=== PATIENT | male | born 1970 | race American Indian/Alaskan Native ===

== ENCOUNTER 2021-01-23 21:51 | Observation (INO) | payer SELFPAY ==
[2021-01-23] MEDS ORDERED: MORPHINE 4 MG/1 ML INJ IV ONE (22:20)
[2021-01-23] MEDS ORDERED: ONDANSETRON 4 MG/2 ML INJ IV ONE (22:20)
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
[2021-01-23 23:23] LABS: INR 0.88 (0.87-1.13)
[2021-01-23 23:24] LABS: Partial Thromboplastin Time 30.5 Sec. (24.2-36.6)
[2021-01-23 23:31] LABS: Alanine Aminotransferase 13 units/L (7-56); Albumin 3.5 g/dL (3.9-5); BUN/Creatinine Ratio 7; Blood Urea Nitrogen 8 mg/dL (9-20); Calcium 8.7 mg/dL (8.4-10.2); Hemolysis Index 17
[2021-01-23 23:56] LABS: Basophils # (Auto) 0.1 K/mm3 (0.0-0.1); Basophils % (Auto) 2.1 % (0.0-1.8); Eosinophils # (Auto) 0.3 K/mm3 (0.0-0.4); Eosinophils % (Auto) 6.4 % (0.0-4.3); Hematocrit 41.3 % (35.5-45.6); Hemoglobin 13.2 gm/dl (11.8-15.2); Lymphocytes # (Auto) 1.6 K/mm3 (1.2-5.4); Lymphocytes % (Auto) 31.8 % (13.4-35.0); Mean Corpuscular HGB Conc 32 % (32-34); Mean Corpuscular Volume 72 fl (84-94); Monocytes # (Auto) 0.5 K/mm3 (0.0-0.8); Monocytes % (Auto) 9.3 % (0.0-7.3); Platelet Count 254 K/mm3 (140-440); Red Blood Count 5.71 M/mm3 (3.65-5.03); Red Cell Distribution Width 14.6 % (13.2-15.2)
--- NOTE | 2021-01-24 00:14 | Cat Scan Report ---
CTA ABDOMEN AND PELVIS WITHOUT AND WITH IV CONTRAST INDICATION / CLINICAL INFORMATION: Pt complains of lower abdominal pain with rectal bleeding. TECHNIQUE: Axial CT images were obtained through the abdomen and pelvis before and after after injection of IV c ontrast. 3 plane MIP / 3D reconstructions were produced. All CT scans at this location are performed using CT dose reduction for ALARA by means of automated exposure control. COMPARISON: None available. FINDINGS: Lung bases are clear. The liver, spleen, adrenal glands, pancreas, gallbladder and upper GI tract jagdish ear normal. Celiac branches appear normal. SMA appears normal. ADOLPH appears normal. There are 2 left r enal arteries and a single right renal artery. Appendix appears normal. There is questionable mild thickening of distal sigmoid colon however there is incomplete distention. Several diverticula are seen in the descending colon and proximal sigmoid colon. No focal inflammato ry change or free fluid. No active extravasation is seen. Additional Findings: None. Skeletal Structures: No significant abnormality. IMPRESSION: 1. Left colonic and sigmoid diverticulosis. There is questionable mild thickening of the proximal sig moid colon and within the region of the rectum however no focal inflammatory change is seen. Clinical correlation and follow-up 2. No active extravasation is identified. Arterial vessels of the abdomen appear patent. Signer Name: Kennedy Louise MD Signed: 01/24/2021 12:09 AM Workstation Name: [id number]
[2021-01-24] MEDS ORDERED: MORPHINE 2 MG/1 ML INJ IV ONE (03:14)
[2021-01-24] MEDS ORDERED: MORPHINE 2 MG/1 ML INJ ONE (03:15)
[2021-01-24] MEDS ORDERED: ALBUTEROL 2.5 MG/3 ML NEBU IH PRN (03:24)
[2021-01-24] MEDS ORDERED: MORPHINE 2 MG/1 ML INJ IV PRN (03:24)
[2021-01-24] MEDS ORDERED: ACETAMINOPHEN 325 MG TAB PO PRN (03:24)
[2021-01-24] MEDS ORDERED: HYDROmorphone 1 MG/1 ML INJ IV PRN (03:24)
[2021-01-24] MEDS ORDERED: ONDANSETRON 4 MG/2 ML INJ IV PRN (03:24)
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
[2021-01-24] MEDS ORDERED: D5W/0.45% NACL 1,000 ML IV SCH (04:00)
[2021-01-24] MEDS ORDERED: SODIUM CHLORIDE 0.9% 1000 ML 1,000 ML IV ONE (06:51)
[2021-01-24] MEDS: PANTOPRAZOLE 40 MG INJ IV SCH ×2 (10:13→21:08)
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
--- NOTE | 2021-01-24 12:36 | Event Note ---
Date: 01/24/21 Patient was seen and evaluated this morning. Patient was found to be hemodynamically stable. GI was consulted, and the plan is to undergo colono scopy tomorrow. We will continue to monitor and trend hemoglobins.
[2021-01-24] MEDS ORDERED: POLYETHYLENE GLYCOL/ELECT SOLN 4000 ML PO ONE (17:00)
[2021-01-25 06:01] LABS: Basophils % (Auto) 0.9 % (0.0-1.8); Eosinophils # (Auto) 0.3 K/mm3 (0.0-0.4); Eosinophils % (Auto) 5.9 % (0.0-4.3); Hemoglobin 13.9 gm/dl (11.8-15.2); Lymphocytes # (Auto) 1.4 K/mm3 (1.2-5.4); Lymphocytes % (Auto) 27.7 % (13.4-35.0); Mean Corpuscular HGB Conc 32 % (32-34); Mean Corpuscular Volume 73 fl (84-94); Monocytes # (Auto) 0.5 K/mm3 (0.0-0.8); Monocytes % (Auto) 9.6 % (0.0-7.3); Platelet Count 269 K/mm3 (140-440); Red Blood Count 6.02 M/mm3 (3.65-5.03); Red Cell Distribution Width 14.5 % (13.2-15.2)
[2021-01-25 06:22] LABS: BUN/Creatinine Ratio 6; Blood Urea Nitrogen 7 mg/dL (9-20); Calcium 8.9 mg/dL (8.4-10.2); Hemolysis Index 3
--- NOTE | 2021-01-25 10:49 | Anesthesia Day of Surgery ---
Anesthesia Day of Surgery - Day of Surgery Patient Examined: Yes Patient H&P Reviewed: Yes Patient is NPO: Yes
--- NOTE | 2021-01-25 10:49 | Anesthesia Consultation ---
Anesthesia Consult and Med Hx Date of service: 01/25/21 - Airway Anesthetic Teeth Evaluation: Good (missing teeth; denies loose teeth) ROM Head & Neck: Adequate Mental/Hyoid Distance: Adequate Mallampati Class: Class II Intubation Access Assessment: Probably Good - Pulmonary Exam CTA: Yes - Cardiac Exam Cardiac Exam: RRR - Pre-Operative Health Status ASA Pre-Surgery Classification: ASA2 Proposed Anesthetic Plan: MAC - Pulmonary Hx Smoking: No Hx Respiratory Symptoms: No - Cardiovascular System Hx Hypertension: No Hx Heart Attack/AMI: No (>4mets functional capacity) Hx Percutaneous Transluminal Coronary Angioplasty (PTCA): No Hx Cardia Arrhythmia: No - Central Nervous System CVA: No - Endocrine Hx Renal Disease: No Hx Liver Disease: No Hx Insulin Dependent Diabetes: No Hx Non-Insulin Dependent Diabetes: No Hx Thyroid Disease: No - Other Systems Hx Obesity: Yes (BMI 30) - Additional Comments Anesthesia Medical History Comments: No prior anesthetics. Denies hx medical problems but has not seen PCP or had routine physical exam in >15yrs. Scheduled for colonoscopy for rectal bleeding.
[2021-01-25] MEDS ORDERED: SODIUM CHLORIDE 0.9% 1000 ML 1,000 ML IV SCH (11:00)
[2021-01-25] MEDS: PANTOPRAZOLE 40 MG INJ IV SCH (11:56)
[2021-01-25] MEDS ORDERED: propofoL 200 MG/20 ML VIAL IV ONE ×2 (12:02→12:14)
--- NOTE | 2021-01-25 12:28 | Post Operative Note ---
Pre-op diagnosis: Rectal bleed Post-op diagnosis: other (Diverticulosis, hemorrhoids) Findings: 1. Moderate diverticulosis of sigmoid and descending colon. 2. Small internal hemorrhoids. 3. Otherwise normal exam. 4. No bleeding noted. Procedure: Colonoscopy Anesthesia: MAC Surgeon: NILE RICHMOND Estimated blood loss: none Pathology: none Condition: stable Disposition: floor (Okay to discharge home on high fiber diet.)
--- NOTE | 2021-01-25 12:39 | Operative Report ---
DATE OF SURGERY: 01/25/2021 COLONOSCOPY REPORT PROCEDURE: Colonoscopy. PREOPERATIVE DIAGNOSIS: Rectal bleeding. POSTOPERATIVE DIAGNOSES: Diverticulosis and hemorrhoids. SEDATION: MAC by Anesthesia. HISTORY: The patient is a 50-year-old man who presented with intermittent rectal bleeding that was getting worse. Hemoglobin is normal. The procedure, indications, risks, and benefits were explained and consent was obtained. DESCRIPTION OF PROCEDURE: The patient was placed in the left lateral decubitus position and sedated. The video colonoscope was passed through the rectum after digital examination and passed with minimal difficulty into the cecum, which was identified by the ileocecal valve and appendiceal orifice. Scope was then gradually withdrawn with close inspection of mucosa. Prep was good. FINDINGS: 1. Moderate diverticulosis involving the sigmoid and descending colon. 2. Small external and internal hemorrhoids on retroflexion. 3. Otherwise, normal colonoscopy with no evidence of bleeding source, mass lesions or polyps. The patient tolerated the procedure well without immediate complication. IMPRESSION: 1. Diverticulosis. 2. Hemorrhoids. 3. Otherwise normal colon with no stigmata of bleeding. RECOMMENDATIONS: 1. High fiber diet. 2. Repeat colonoscopy in 10 years. TID: [id number] RECEIPT: [id number] C/HOW
[2021-01-25 13:07] VITALS: BP 109/70
--- NOTE | 2021-01-25 13:13 | Post Anesthesia Evaluation ---
- Post Anesthesia Evaluation Patient Participated: Yes Airway Patent: Yes Stable Respiratory Function: Yes Nausea/Vomiting: No Temp > 96.8F: Yes Pain Manageable: Yes Adequeate Hydration: Yes Anesthesia Complications: No
--- NOTE | 2021-01-25 14:28 | Discharge Summary ---
Providers - Providers Date of Admission: 01/24/21 04:05 Date of discharge: 01/25/21 Attending physician: EMELY GEORGE MD 01/24/21 00:24 Consult to Physician [CONS] Urgent Comment: Dr. Rdz spoke with Dr. Zambrano @ 0021 Consulting Provider: GEENA ZAMBRANO Physician Instructions: Reason For Exam: rectal bleeding, diverticulosis Primary care physician: [employer] Hospitalization Reason for admission: Bright red blood per rectum Condition: Stable Procedures: Colonoscopy 01/25 Hospital course: 50-year-old male no significant past medical history who presented after 1 week of rectal bleeding. Previous colonoscopy 20 years ago was unremarkable. On admission hemoglobin and hematocrit was 13.2/41.3. Blood was seen grossly in the rectum. CT angio abdomen/pelvis showed diverticulosis without evidence of acute hemorrhage. GI was consulted and Protonix was started. Colonoscopy was performed on 01/25 which showed moderate diverticulosis of the sigmoid and descending colon along with small internal hemorrhoids. Hemoglobin and hematocrit remained stable. Patient was discharged home with instructions to start a high-fiber diet. Disposition: 01 HOME / SELF CARE / HOMELESS Final Discharge Diagnosis (Prints w/discharge instructions): GI bleed. Diverticulosis. Internal hemorrhoids Time spent for discharge: 20 minutes Core Measure Documentation - Palliative Care Palliative Care/ Comfort Measures: Not Applicable - Core Measures Any of the following diagnoses?: none Exam - Physical Exam Narrative exam: GENERAL: Well-developed well-nourished. Lying in bed, in no acute distress. HEENT: Normocephalic. Atraumatic. CHEST/LUNGS: CTAB on room air HEART/CARDIOVASCULAR: RRR. No murmur, rubs or gallops appreciated. ABDOMEN: +BS. NT/ND. EXTREMITIES: No cyanosis, clubbing or edema. PSYCH: Cooperative. - Constitutional Vitals: Temp Pulse Resp BP Pulse Ox 98.5 F 69 14 109/70 97 01/25/21 12:22 01/25/21 12:47 01/25/21 12:47 01/25/21 12:47 01/25/21 12:47 Plan Activity: advance as tolerated Diet: regular Care Plan Goals: Start eating a diet rich in fiber. Colonoscopy normal, will need repeat in 10 years. Assessment: Patient admitted with melena. Hemoglobin and hematocrit remained stable with no signs of bleeding while inpatient. GI was consulted and colonoscopy was performed on 01/25. Patient was found to have moderate diverticular low cysts of the sigmoid and descending colon along with small internal hemorrhoids. Patient was discharged with instructions to increase the amount of fiber in his diet. Follow up with: PRIMARY CARE, [Primary Care Provider] - 7 Days Forms: Work/School Release Form
--- NOTE | 2021-01-25 19:01 | Electrocardiograph Report ---
[facility] Test Date: 2021-01-24 Test Time: 13:07:46 Pat Name: HILARY PARRA Department: Room: A466 1 Gender: M Terminal Clerk: ZACK : 1970 Requested By: JACKSON MONTANO Order Number: [id number] Reading MD: Earlene Cedillo Measurements Intervals Louise Rate: 63 P: 19 IN: 152 QRS: 57 QRSD: 81 T: 32 QT: 385 QTc: 395 Interpretive Statements Sinus rhythm ST elev, probable normal early repol pattern No previous ECG available for comparison Electronically Signed On 01-25-2021 19:01:11 EDT by Earlene Cedillo
== END 2021-01-25 16:20 | disposition home or self-care (01) ==
LOC: ED 21:51 → INTOOBSV 01-24 04:05 → 4A 01-24 04:05
PROVIDERS: ADMIT Hospitalist; ATTEND Student in an Organized Health Care Education/Training Program
DX: K62.5 Hemorrhage of anus and rectum (principal); K57.90 Diverticulosis of intestine, part unspecified, without perforation or abscess without bleeding; K64.9 Unspecified hemorrhoids; Z79.899 Other long term (current) drug therapy; Z98.890 Other specified postprocedural states
CPT/HCPCS: 36415; 45378; 74174; 80048; 80053; 82271; 83735; 84100; 85025; 85610; 85730; 86850; 86900; 86901; 93005; 96374; 96375; 96376; 99285; C9113; G0378; J2270; J2405; J2704; Q9967

== ENCOUNTER 2021-05-12 08:00 | Emergency (ER) | payer SELFPAY ==
[2021-05-12 08:18] VITALS: BP 149/103
[2021-05-12] MEDS ORDERED: IBUPROFEN 600 MG TAB PO ONE (08:20)
--- NOTE | 2021-05-12 08:21 | Emergency Department Report ---
ED Fall HPI - General Chief Complaint: Fall Stated Complaint: BODY PAIN DUE TO FALL Time Seen by Provider: 05/12/21 08:19 Source: patient Mode of arrival: Ambulatory - History of Present Illness Initial Comments: Patient presents with injury secondary to a fall. He was walking down some steps. One of the steps broke and he went through it. He then fell backwards. He did not hit his head or lose consciousness. This happened about 6 or 630 this morning. Since then he has had ongoing and continuous pain. There is pain in the anterior aspect of the left knee. He reports having pain in the lower back that radiates all the way up to his neck. The pain in the knee is aching and sharp. It is worse with palpation. The pain in the lower back is described as an aching pain also worse with palpation and movement. The pain in the upper back and neck area he describes as "a lightening strike." He states that the pains do not radiate or migrate. He has no chest pain or abdominal pain. Again, he had no loss of consciousness. He denies saddle anesthesia. There is no incontinence. - Related Data Home Medications Medication Instructions Recorded Confirmed Last Taken Cholecalciferol Vit D3 [Vitamin D3 1,000 unit PO QDAY 01/24/21 01/24/21 01/17/21 1,000 UNIT TAB] Multivitamin 1 each PO QDAY 01/24/21 01/24/21 01/17/21 Zinc Sulfate 220 mg PO QDAY 01/24/21 01/24/21 01/17/21 Previous Rx's Medication Instructions Recorded Last Taken Type Ibuprofen [Motrin] 600 mg PO Q8H PRN #30 tablet 05/12/21 Unknown Rx Metaxalone [Skelaxin] 800 mg PO TID #9 tablet 05/12/21 Unknown Rx Allergies Allergy/AdvReac Type Severity Reaction Status Date / Time No Known Allergies Allergy Verified 05/12/21 08:12 ED Review of Systems ROS: Stated complaint: BODY PAIN DUE TO FALL Other details as noted in HPI Comment: All other systems reviewed and negative Constitutional: denies: fever Eyes: denies: vision change ENT: denies: epistaxis Respiratory: denies: cough Cardiovascular: denies: chest pain Endocrine: denies: unexplained weight loss Gastrointestinal: denies: abdominal pain Genitourinary: denies: hematuria Musculoskeletal: as per HPI Skin: denies: rash Neurological: denies: headache Hematological/Lymphatic: denies: easy bruising ED Past Medical Hx - Past Medical History Hx Hypertension: No Hx Heart Attack/AMI: No (>4mets functional capacity) Hx Congestive Heart Failure: No Hx Diabetes: No Hx Liver Disease: No Hx Renal Disease: No Hx Asthma: No Hx COPD: No - Surgical History Past Surgical History?: No - Family History Family history: CAD/[place] - Social History Smoking Status: Never Smoker - Medications Home Medications: Home Medications Medication Instructions Recorded Confirmed Last Taken Type Cholecalciferol Vit D3 [Vitamin D3 1,000 unit PO QDAY 01/24/21 01/24/21 01/17/21 History 1,000 UNIT TAB] Multivitamin 1 each PO QDAY 01/24/21 01/24/21 01/17/21 History Zinc Sulfate 220 mg PO QDAY 01/24/21 01/24/21 01/17/21 History Ibuprofen [Motrin] 600 mg PO Q8H PRN #30 tablet 05/12/21 Unknown Rx Metaxalone [Skelaxin] 800 mg PO TID #9 tablet 05/12/21 Unknown Rx ED Physical Exam - General Limitations: No Limitations, Other (Pulse ox noted and normal) General appearance: alert, in no apparent distress, obese - Head Head exam: Present: atraumatic, normocephalic - Eye Eye exam: Present: normal appearance, EOMI. Absent: scleral icterus - ENT ENT exam: Present: normal orophraynx, normal external ear exam - Neck Neck exam: Present: normal inspection, tenderness (Paraspinous and trapezius areas bilaterally. No midline tenderness, step-off, or deformity) - Respiratory Respiratory exam: Present: normal lung sounds bilaterally. Absent: respiratory distress - Cardiovascular Cardiovascular Exam: Present: regular rate, normal rhythm - GI/Abdominal GI/Abdominal exam: Present: soft. Absent: tenderness - Extremities Exam Extremities exam: Present: normal capillary refill, other (There is tenderness to the anterior aspect of the left knee. This is over the patella area. Patella is not ballotable. There is no obvious ligamentous instability with anterior or posterior drawer. There is no tenderness involving the left lower leg or left femur and hip). Absent: calf tenderness - Back Exam Back exam: Present: paraspinal tenderness (Diffuse in the lumbar, thoracic, and cervical areas). Absent: CVA tenderness (R), CVA tenderness (L), vertebral tenderness - Neurological Exam Neurological exam: Present: alert, oriented X3, CN II-XII intact, normal gait. Absent: motor sensory deficit - Psychiatric Psychiatric exam: Present: normal affect, normal mood - Skin Skin exam: Present: warm, dry ED Course Vital Signs 05/12/21 08:17 Temperature 98.2 F Pulse Rate 77 Respiratory 20 Rate Blood Pressure 149/103 O2 Sat by Pulse 97 Oximetry - Reevaluation(s) Reevaluation #1: 05/12/21 08:21 Radiographs were ordered. Old records noted. Reevaluation #2: 05/12/21 10:39 Radiographs are noted. ED Medical Decision Making - Radiology Data Radiology results: report reviewed - Medical Decision Making Patient presented with injuries from a fall. There is no evidence of acute fracture of the knee. There is no effusion. He had no ligament instability. I do not believe he needs MRI. He certainly does not need emergent CT. Patient could be referred for outpatient follow-up. He also complained of diffuse back and neck pain. There is no midline tenderness or step-off that would have suggested spinal fracture. He has no neurologic symptom or deficit that would suggest cord injury or cauda equina. He may benefit from outpatient measures including physical therapy and that can be discussed with his primary care physician. Critical Care Time: No Critical care attestation.: If time is entered above; I have spent that time in minutes in the direct care of this critically ill patient, excluding procedure time. ED Disposition Clinical Impression: Fall Qualifiers: Encounter type: initial encounter Qualified Code(s): W19.XXXA - Unspecified fall, initial encounter Acute cervical myofascial strain Qualifiers: Encounter type: initial encounter Qualified Code(s): S16.1XXA - Strain of muscle, fascia and tendon at neck level, initial encounter Lumbar strain Qualifiers: Encounter type: initial encounter Qualified Code(s): S39.012A - Strain of muscle, fascia and tendon of lower back, initial encounter Contusion of left knee Qualifiers: Encounter type: initial encounter Qualified Code(s): S80.02XA - Contusion of left knee, initial encounter Disposition: 01 HOME / SELF CARE / HOMELESS Is pt being admited?: No Condition: Stable Instructions: Lumbar Sprain, Contusion, Muscle Strain, Xezt-yc-Dold, Cervical Sprain Additional Instructions: Apply ice to sore areas. Drink any water. Return for problems. Follow-up with your family doctor or the referral physician for recheck. Prescriptions: Ibuprofen [Motrin] 600 mg PO Q8H PRN #30 tablet PRN Reason: Pain Metaxalone [Skelaxin] 800 mg PO TID #9 tablet Referrals: CHARISSA PERSON MD [Staff Physician] - 3-5 Days PRIMARY CAREMD [Referring] - 3-5 Days
--- NOTE | 2021-05-12 09:35 | XRay Report ---
Left knee, 3 views HISTORY: Pain COMPARISON: None FINDINGS: No acute fracture or malalignment. No significant arthritis. Bipartite patella noted. No si gnificant joint effusion. Soft tissues are unremarkable. IMPRESSION: No acute process. Signer Name: Javier Escobar MD Signed: 05/12/2021 9:30 AM Workstation Name: [id number]
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
== END 2021-05-12 11:14 | disposition home or self-care (01) ==
LOC: ED 08:00
DX: S39.012A Strain of muscle, fascia and tendon of lower back, initial encounter (principal); S16.1XXA Strain of muscle, fascia and tendon at neck level, initial encounter; S80.02XA Contusion of left knee, initial encounter; W19.XXXA Unspecified fall, initial encounter; Y93.89 Activity, other specified; Y92.89 Other specified places as the place of occurrence of the external cause; Y99.8 Other external cause status
CPT/HCPCS: 72100; 99283